=== PATIENT | female | born 1930 | race Caucasian/White ===

== ENCOUNTER 2016-07-12 09:00 | Observation (INO) | payer MEDICARE, OTHER ==
--- NOTE | ~2016-07-12 | DS ---
Discharge Summary [facility] [address] [place]. [address] NAME: BRADY MCCAULEY : 30 STATUS : DIS Dolly PAT#: [id number] AGE: 85 ADM/REG DATE : 07/12/16 MR#: [id number] REPORT SERV DATE: 07/14/16 DICTATED BY: JR. QUINTERO WILLIAM JOHN DATE: 07/13/16 REPORT STATUS : Draft TRANSCRIBED BY: ZEN DATE: 07/13/16 ADMISSION DATE: 07/12/2016 DISCHARGE DATE: 07/13/2016 DISCHARGE DIAGNOSES: 1. Status post fall with fear of walking. 2. Chronic obstructive pulmonary disease exacerbation. 3. Acute on chronic hypoxic respiratory failure. 4. Hyperlipidemia. OPERATIONS, PROCEDURES, AND TREATMENTS: Include: 1. Chest x-ray done 07/12/2016, which showed hyperinflation of bronchial wall with interstitial thickening compatible with asthma or COPD. 2. Blood cultures x2 that are sterile up to this point. DISCHARGE MEDICATIONS: Include: 1. Lipitor 10 mg orally daily. 2. Calcium plus D one tablet orally daily. 3. Multivitamin one tablet orally daily. 4. Prednisone 20 mg orally daily. 5. Albuterol nebulized every six hours. 6. Advair Diskus 250/50 one puff twice a day. HOSPITAL COURSE: The patient was an 85-year-old white female who quit smoking last year after 65-pack year smoking history who presented to emergency room with complaint of shortness of breath after a fall. The patient is followed outpatient by Dr. Means but did not feel like going to appointment, stayed here. She is on Advair at home, came to the emergency room with shortness of breath, and by the patient's report said that she fell at home and is afraid to walk. Her initial arterial blood gas was pH 7.38, pCO2 of 41, and PO2 of 58 on room air. For exact details of the history, physical, and presenting data, please see Dr. Ho's dictated history and physical. The patient was admitted to the Clinical Decision Unit for observation for her COPD. She was placed on low-dose prednisone 20 mg and was also started on albuterol nebulized. The patient tolerated this well, was on room air, and without respiratory difficulties by hospital day #2. Unfortunately, she said she had fallen. She was terrified to walk. She actually came from [facility], who was here to see her and said she could go to a Skilled Facility for rehabilitation. Therefore, the patient will be discharged back to [facility] under the care of Dr. Jimmy Esparza today 07/13/2016. DIET: Regular. ACTIVITY: As tolerated. FOLLOWUP: With Dr. Esparza. Discharge Summary [address] [address] NAME: BRADY MCCAULEY : 30 STATUS : DIS Dolly PAT#: [id number] AGE: 85 ADM/REG DATE : 07/12/16 MR#: [id number] REPORT SERV DATE: 07/14/16 DICTATED BY: JR. QUINTERO WILLIAM JOHN DATE: 07/13/16 REPORT STATUS : Draft TRANSCRIBED BY: ZEN DATE: 07/13/16 TEQUILA/ZEN Iker Quintero Jr, MD / [id number] CC: Iker Quintero Jr, MD John Cranwell, M.D.
--- NOTE | ~2016-07-12 | HP ---
History And Physical [address] [address] NAME: BRADY MCCAULEY : 30 STATUS : ADM Dolly PAT#: [id number] AGE: 85 ADM/REG DATE : 07/12/16 MR#: [id number] REPORT SERV DATE: 07/12/16 DICTATED BY: LEVI JAQUEZ DATE: 07/12/16 REPORT STATUS : Draft TRANSCRIBED BY: ZEN DATE: 07/12/16 DATE OF ADMISSION: 07/12/2016 EXAMINING PHYSICIAN: Levi Jaquez M.D. REASON FOR ADMISSION: Shortness of breath subjectively with marginal hypoxemia, history of COPD, and plan for followup with Dr. Nella Means. HISTORY: This is an 85-year-old white female who quit smoking last year after smoking for 65 years. She does have an aerosol machine in her home and is followed by Dr. Jimmy Esparza. He referred her to Dr. Means for the COPD. She presented to the emergency room with shortness of breath. She has been short of breath for about the last two weeks. No increasing wheezing. She did not feel like going to the appointment with Dr. Means last Saturday and stayed at home. She has had decreasing activity over the last pba-pw-dtoxh weeks and has had increasing weakness. She is on Advair. Chest x-rays have been clear, and she came to the emergency room and was seen by nurse practitioner, Terri, in the emergency room. Chest x-ray again is clear. Her arterial blood gas was as follows: 7.38, 41, and 58 on room air with oxygen saturation of 89%. Her BNP was 59. Chest x-ray showed hyperinflation with some bronchial thickening compatible with asthma or COPD. She has had some coughing that is nonproductive, it is not excessive. She does not have any sputum production. She was given the option of going home and following up with Dr. Esparza. She did not have oxygen at home, neither does she qualify for it at rest, therefore, observation with assessment of oxygen level with walking and more intensified breathing treatments are planned. PAST MEDICAL HISTORY: She has been hospitalized, the last time was about 20 months ago for an exacerbation of COPD. Dr. Means actually did pulmonary function testing on her in 2013, that is reviewed. She did have a FEV1 of 1.58 at that time and FVC of 1.58 but an FEV1 of 37% predicted or 690 mL. At that time, there has been a decline in her pulmonary function by 260 mL. She and daughter stated no one has talked to them about the possibility of hospice care. MEDICATIONS: Her home medications are reviewed and include the following: Lipitor 10 mg p.o. on Tuesdays and Fridays; calcium with vitamin D one p.o. daily; Advair Diskus 250/50 one puff daily; and Theragran-M. ALLERGIES: NONE ARE KNOWN. SOCIAL HISTORY: She has been for about the last 5 to 7 years. She and her moved down here from [place] where they lived their whole lives. She quit smoking 5 years but had over 60 pack-year history of smoking prior to that. She does not take any History And Physical [address] [place]. [address] NAME: BRADY MCCAULEY : 30 STATUS : ADM Dolly PAT#: [id number] AGE: 85 ADM/REG DATE : 07/12/16 MR#: [id number] REPORT SERV DATE: 07/12/16 DICTATED BY: LEVI JAQUEZ DATE: 07/12/16 REPORT STATUS : Draft TRANSCRIBED BY: ZEN DATE: 07/12/16 alcohol. She attends [employer] and does not want to be resuscitated in the event of cardiac arrest. She has had significant decline. They even talking to her about going to assisted living from the independent living at [facility]. FAMILY HISTORY: There are no recollectable family diseases pertinent to her admission. Her did with an AICD, and he was the 17th person in the country to receive such a device. He worked with a support group for other people who received those. REVIEW OF SYSTEMS: She has shortness of breath, dyspnea on exertion. She just feels weak mostly. She has had no fever, chills, or night sweats. No significant cough. No unilateral weakness. No melena, hematemesis, fits, seizures, or convulsions. She does have increasing shortness of breath with walking with a walker. At [facility], her daughter noticed that she has not been able to make as much tea as she did for herself in the past and the foods brought to her so she does not have to do very much there but her decline has been progressing over the last 2 to 3 months as confirmed by daughter, Meme and son, Jamin. They both also confirmed the patient not to be resuscitated in the event of cardiac arrest. She does have a living will as well. The remainder of the review of systems is negative. PHYSICAL EXAMINATION: GENERAL: Elderly white female, somewhat withdrawn, no acute distress. HEENT: EOMI. Sclerae clear. Conjunctivae slightly pale. NECK: No bruit without any JVD. CHEST: Decreased breath sounds throughout. No wheezing. HEART: Regular S1, S2 without any murmur, gallop, or click. ABDOMEN: Soft, nontender. Bowel sounds positive. No HSM. EXTREMITIES: Have no edema. Distal pulses are trace in the dorsalis pedis and posterior tibial. NEUROLOGIC: Her hearing is decreased bilaterally. She moves very slowly but is able to comply with directions. She withdraws to plantar stimulation. Sensory is grossly intact bilaterally. She has slight ptosis of the left eye though intermittently opens it to be able to see. SKIN: She has slight redness with raised margin lesion on the right cheek about 1.5 cm. LABORATORY DATA: The chest x-ray shows evidence of COPD as above. Pulmonary function tests done in 2013, last had demonstrated decline of 260 mL from 2011. Her BNP was 58.9. Troponin less than 0.02. Comprehensive metabolic profile showed a sodium of 136, potassium 3.7, albumin 2.8, indicating poor nutrition, and globulin of 4.6 which is slightly elevated. The glucose was 114. Her hemoglobin 11.0, hematocrit 33.0, white count 7.6, and platelets were 332,000. ASSESSMENT: 1. Chronic obstructive pulmonary disease with acute exacerbation. This may just be slow History And Physical [address] [address] NAME: BRADY MCCAULEY : 30 STATUS : ADM Dolly PAT#: [id number] AGE: 85 ADM/REG DATE : 07/12/16 MR#: [id number] REPORT SERV DATE: 07/12/16 DICTATED BY: LEVI JAQUEZ DATE: 07/12/16 REPORT STATUS : Draft TRANSCRIBED BY: ZEN DATE: 07/12/16 terminal decline. She has an established decline by pulmonary function test previously. 2. Marginal hypoxemia 89% on room air with clear lungs. No wheezing. There may be very few reversible components but I believe oxygen may be of some value to her if we can demonstrate that her hypoxemia worsens with ambulation. We will check and set up home O2. 3. History of hyperlipidemia on medications. 4. The patient does not wish to be resuscitated in the event of cardiac arrest, therefore we will enter DNR per her and family's wishes. 5. Pulmonary function testing with Dr. Means again. If it demonstrates continued decline, would expect that life expectancy may be limited and consideration for discussion regarding hospice would be appropriate. ADDENDUM: The patient did not want to stay on the observation status. The hypoxemia with questionable reversible factors leads me to agree with nurse practitionerTerri's suggestion, she will be admitted to observation without definitive criteria for admission as an inpatient. DB/MODL Levi Jaquez M.D. / [id number] CC: Iker Quintero Jr, MD Catherine Martinez, M.D. Gregory J. Nieckula, DO
[2016-07-12 08:09] LABS: BASOPHILS 0.5 %; BASOPHILS ABSOLUTE 0.04 10/3/uL (0.0-0.16); EOSINOPHILS ABSOLUTE 0.23 10/3/uL (0.0-0.53); IMMATURE GRANULOCYTES 0.5 %; IMMATURE GRANULOCYTES ABSOLUTE 0.04 10/3/uL (0.0-0.11); LYMPHOCYTES 26.5 %; MANUAL DIFF NO %; MEAN CORPUS HGB CONC 33.3 g/dL (32.0-36.0); MEAN CORPUSCULAR HEMOGLOB 28.9 pg (26.0-34.0); MEAN CORPUSCULAR VOLUME 86.6 fL (80-100); MEAN PLATELET VOLUME 8.4 fL (9.2-13.0); MONOCYTES 9.8 %; MONOCYTES ABSOLUTE 0.74 10/3/uL (0.21-1.20); NEUTROPHILS 59.7 %; NEUTROPHILS ABSOLUTE 4.51 10/3/uL (2.02-8.40); PLATELET COUNT 332 10/3/uL (150-400); RBC DISTRIBUTION WIDTH 14.7 % (12.0-16.0); RED CELL COUNT 3.81 10/6/uL (4.0-5.6); WHITE BLOOD CELLS 7.6 10/3/uL (4.5-10.5)
[2016-07-12 08:27] LABS: A/G RATIO 0.6 (0.7-1.9); ALBUMIN 2.8 G/DL (3.5-5.0); ALKALINE PHOSPHATASE 108 U/L (45-117); BUN (BLOOD UREA NITROGEN) 8 MG/DL (6-23); CALCIUM, SERUM 8.8 MG/DL (8.5-10.4); CHLORIDE, SERUM 98 MMOL/L (96-112); CO2 (CARBON DIOXIDE) 26 MMOL/L (24-34); CREATININE 0.65 MG/DL (0.55-1.02); GFR AFRICAN AMERICAN 94 ML/MIN (>=60); GFR NON AFRICAN AMERICAN 81 ML/MIN (>=60); GLOBULIN 4.6 G/DL (2.5-4.1); GLUCOSE, SERUM 92 MG/DL (60-99); POTASSIUM, SERUM 3.7 MMOL/L (3.5-5.3); SGOT(AST) 21 U/L (5-40); SGPT(ALT) 20 U/L (5-65); SODIUM, SERUM 136 MMOL/L (135-148); TOTAL BILIRUBIN 0.8 MG/DL (0-1.2); TOTAL PROTEIN 7.4 G/DL (6.0-8.5)
[2016-07-12 09:46] LABS: ALLENS TEST Pos; HCO3 (ACTUAL BICARBONATE) 24.1 MEQ/L (23-27); HEMOBLOGIN CONTENT 11.5 G/DL (12-16); INSTRUMENT SERIAL # 8087; METHEMOGLOBIN 0.3 % (0-3); O2 CONTENT 14.2 VOL% (18-24); OPERATOR ID 14335; PCO2 (CO2 TENSION) 41 MMHG (35-45); PO2 (O2 TENSION) 58 MMHG (79-93); SAMPLE Arterial; pH 7.38 (7.37-7.43)
[2016-07-12] MEDS ORDERED: LIPITOR10 PO (10:48)
[2016-07-12] MEDS ORDERED: ADVAIR250 INH (10:48)
[2016-07-12] MEDS ORDERED: VIACTIV PO (10:49)
[2016-07-12] MEDS ORDERED: THERGRANM PO (10:49)
[2016-07-13 04:18] LABS: BUN (BLOOD UREA NITROGEN) 9 MG/DL (6-23); CALCIUM, SERUM 9.1 MG/DL (8.5-10.4); CHLORIDE, SERUM 101 MMOL/L (96-112); CO2 (CARBON DIOXIDE) 26 MMOL/L (24-34); CREATININE 0.72 MG/DL (0.55-1.02); GFR AFRICAN AMERICAN 89 ML/MIN (>=60); GFR NON AFRICAN AMERICAN 76 ML/MIN (>=60); GLUCOSE, SERUM 98 MG/DL (60-99); POTASSIUM, SERUM 4.5 MMOL/L (3.5-5.3); SODIUM, SERUM 137 MMOL/L (135-148)
[2016-07-13 04:32] LABS: BASOPHILS 0.1 %; BASOPHILS ABSOLUTE 0.01 10/3/uL (0.0-0.16); EOSINOPHILS 0 %; HEMOGLOBIN 9.7 g/dL (12.0-16.0); IMMATURE GRANULOCYTES 0.4 %; IMMATURE GRANULOCYTES ABSOLUTE 0.03 10/3/uL (0.0-0.11); LYMPHOCYTES 13.2 %; LYMPHOCYTES ABSOLUTE 1.13 10/3/uL (0.67-4.30); MEAN CORPUS HGB CONC 32.9 g/dL (32.0-36.0); MEAN CORPUSCULAR HEMOGLOB 28.9 pg (26.0-34.0); MEAN CORPUSCULAR VOLUME 87.8 fL (80-100); MEAN PLATELET VOLUME 8.6 fL (9.2-13.0); MONOCYTES 12.7 %; MONOCYTES ABSOLUTE 1.09 10/3/uL (0.21-1.20); NEUTROPHILS 73.6 %; NEUTROPHILS ABSOLUTE 6.29 10/3/uL (2.02-8.40); PLATELET COUNT 340 10/3/uL (150-400); RBC DISTRIBUTION WIDTH 14.5 % (12.0-16.0); RED CELL COUNT 3.36 10/6/uL (4.0-5.6); WHITE BLOOD CELLS 8.6 10/3/uL (4.5-10.5)
[2016-07-13 04:38] LABS: HEMATOCRIT 29.5 % (36.0-48.0); MANUAL DIFF NO %
== END 2016-07-13 18:00 | disposition home or self-care (01) ==
LOC: ER 09:00 → CDU1 10:33 → CDU2 11:02
PROVIDERS: Internal Medicine; Nurse Practitioner
DX: J44.1 Chronic obstructive pulmonary disease with (acute) exacerbation (principal); J96.21 Acute and chronic respiratory failure with hypoxia; E78.5 Hyperlipidemia, unspecified; Z79.899 Other long term (current) drug therapy; Z79.52 Long term (current) use of systemic steroids; Z87.891 Personal history of nicotine dependence
CPT/HCPCS: 36600; 71010; 80048; 80053; 82805; 82962; 83880; 84484; 85025; 87040; 87070; 87205; 93005; 94640; 96372; 96374; 97161-GP; 99285; A9270-GY; G0378; G8978-CK-GP; G8979-CK-GP; G8980-CJ-GP; J2405